=== PATIENT | female | born 1950 | race Two or more races ===

== ENCOUNTER → 2016-08-11 | Outpatient (CLI) | payer MEDICARE ==
[~2016-08-11] VITALS: Ht 165.1 cm; Wt 84.4 kg
[~2016-08-11] MED LIST: ASPIRIN EC81 MG ORAL; CITALOPRAM HBR20 M1 ORAL; FLUTICASONE PRO16 G1 NASAL; KLONOPIN0.5 MG ORAL; OYSCO-500500 M1 PO; SYNTHROID150 MCG ORAL; ZOLPIDEM TARTRA10 MG ORAL
[2016-08-11 10:19] VITALS: BP 148/68
--- NOTE | 2016-08-11 10:49 | GI Initial Consult Note ---
History of Present Illness General Date patient seen: Aug 11, 2016 Time patient seen: 10:45 Referring physician: JAYDEN Reason for Consultation: COLONOSCOPY Present Illness HPI 65 year old patient referred by Dr. Mcneil for routine colonoscopy screening. Pt presents today with no general complaints. Denies any unintentional weight loss. Home Meds Reported Medications Levothyroxine Sodium* (SYNTHROID*) 150 Mcg Tablet, 150 MCG ORAL DAILY, TAB Take in the morning on an empty stomach, at least 30 minutes before food. 08/11/16 Med list reviewed/reconciled: Yes Allergies: Coded Allergies: No Known Allergies (Unverified , 08/11/16) Patient History History Provided By: Patient PMH Narrative Hypothyroidism Past Surgical History: none Social History: Denies: alcohol use, drug use, other, smoking Review of Systems All Other Systems: negative except mentioned in HPI Physical Exam Vital Signs Date Time Temp Pulse Resp B/P Pulse Ox O2 Delivery O2 Flow Rate FiO2 08/11/16 10:19 97.4 60 16 148/68 96 WT 186 lbs HT 5'5 Sp02 EP Interpretation: reviewed General Appearance: normal inspection, well appearing, no apparent distress, alert Head: normocephalic EENT: PERRL/EOMI, normal ENT inspection Neck: normal inspection, full range of motion, supple Respiratory: normal breath sounds, no respiratory distress Cardiovascular: normal rate Gastrointestinal: normal inspection, non tender, soft Rectal: deferred Musculoskeletal: normal inspection, back normal Neurologic: normal inspection, alert, oriented x3, responsive Psychiatric: normal inspection, judgement/insight normal, memory normal Skin: normal inspection, normal color, no rash, warm/dry Lymphatic: normal inspection, no adenopathy GI: Plan Problems: (1) Colonoscopy planned (2) Hypothyroidism Plan colonoscopy scheduled for 08/14/16 - [facility] & [employer] prep instructions given and acknowledged. Seen with Dr. Norris. Thank you for referring this kind patient. Catarina Flood N.P. Aug 11, 2016 10:49
== END | disposition home or self-care (01) ==
LOC: PAN 09:54
DX: E03.9 Hypothyroidism, unspecified (principal)
CPT/HCPCS: 99201

== ENCOUNTER → 2016-08-14 | Day surgery (SDC) | payer MEDICARE ==
[~2016-08-14] VITALS: Ht 165.1 cm; Wt 81.6 kg
[2016-08-14] VITALS (8 sets, daily range): BP systolic 124–152; BP diastolic 70–78
[~2016-08-14] MED LIST changes: +LR 1000ml ONE; +Lidocaine 1% MPF 10mg/ml 5ml ONE; +Propofol 10mg/ml 20ml IV ONE
--- NOTE | 2016-08-14 08:28 | Pre-Procedure Note/Attestation ---
Pre-Procedure Note/Attestation Complete Prior to Procedure Planned Procedure: not applicable Procedure Narrative: colonoscopy Indications for Procedure Pre-Operative Diagnosis: screening Attestation I attest that I discussed the nature of the procedure; its benefits; risks and complications; and alternatives (and the risks and benefits of such alternatives ), prior to the procedure, with the patient (or the patient's legal credit resolution representative). I attest that, if there was a reasonable possibility of needing a blood transfusion, the patient (or the patient's legal credit resolution representative) was given the [facility] standardized written summary, pursuant to the [place] Blood Safety Act ([place] Health and Safety Code # 1645, as amended). I attest that I re-evaluated the patient just prior to the surgery and that there has been no change in the patient's H&P, except as documented below: JAIR SUNG Aug 14, 2016 08:28
--- NOTE | 2016-08-14 08:29 | Short Stay Surgery H&P ---
History of Present Illness History of Present Illness Chief Complaint see recent consult HPI Gayle Mack is a 65 year old female who was admitted on for Colon Screening Patient History Allergies: Coded Allergies: No Known Allergies (Unverified , 08/11/16) PAST MEDICAL HISTORY: Past Surgeries: Social History: Medication History Scheduled Aspirin Ec* (Aspirin Ec*), 81 MG ORAL DAILY, (Reported) Calcium Carbonate ([place]ysco-500), 500 MG PO DAILY, (Reported) Citalopram Hydrobromide* (Citalopram Hbr*), 20 MG ORAL DAILY, (Reported) Clonazepam* (Klonopin*), 0.5 MG ORAL Q6H, (Reported) Fluticasone Propionate* (Fluticasone Propionate*), 2 SPRAY NASAL DAILY, ( Reported) Levothyroxine Sodium* (Synthroid*), 150 MCG ORAL DAILY, (Reported) Scheduled PRN Zolpidem Tartrate* (Zolpidem Tartrate*), 10 MG ORAL BEDTIME PRN for Insomnia, ( Reported) Plan Attestation Are the patient's medical conditions optimized for surgery? JAIR SUNG Aug 14, 2016 08:29
--- NOTE | 2016-08-14 09:46 | Anethesia Preoperative Eval ---
Anesthesia Pre-op PMH/ROS General Date of Evaluation: Aug 14, 2016 Time of Evaluation: 09:43 Anesthesiologist: jacklyn ASA Score: ASA 2 Mallampati Score Class I : Soft palate, uvula, fauces, pillars visible Class II: Soft palate, uvula, fauces visible Class III: Soft palate, base of uvula visible Class IV: Only hard plate visible Mallampati Classification: Class II Surgeon: Myrna Diagnosis: Colon screening Surgical Procedure: colonoscopy Anesthesia History: none Family History: no anesthesia problems Allergies: Coded Allergies: No Known Allergies (Unverified , 08/11/16) Medications: see eMAR Past Medical History Cardiovascular: Denies: CAD, HTN, HI, arrhythmia, other, valve dz Pulmonary: Denies: COPD, LUCINDA, asthma, other Gastrointestinal/Genitourinary: Reports: GERD Neurologic/Psychiatric: Denies: CVA, TIA, dementia, depression/anxiety, other Endocrine: Reports: hypothyroidism HEENT: Denies: [place] (L), [place] (R), cataract (L), cataract (R), glaucoma, other Hematology/Immune: Denies: DVT, anemia, bleeding disorder, other Musculoskeletal/Integumentary: Denies: DDD, DJD, OA, RA, edema, other PMH Narrative: none Anesthesia Pre-op Phys. Exam Physician Exam Last Vital Signs Date Time Temp Pulse Resp B/P Pulse Ox O2 Delivery O2 Flow Rate FiO2 08/14/16 08:45 97.3 59 18 152/76 97 Room Air Constitutional: NAD Neurologic: CN 2-12 intact Cardiovascular: RRR Respiratory: CTA Gastrointestinal: S/NT/ND Airway Exam Mallampati Classification 3 Mallampati Score: Class II MO: full ROM: full Dentures: no lower, no upper Anesthesia Pre-op A/P Studies Pre-op Studies: EKG - sr Risk Assessment & Plan Plan: mac Status Change Before Surgery: No Pre-Antibiotics Drug: none ADALI ISRAEL CRNA Aug 14, 2016 09:46
--- NOTE | 2016-08-14 10:00 | Immediate Post-Op Evaluation ---
Immediate Post-Op Evalulation Immediate Post-Op Evalulation Procedure: colonoscopy Date of Evaluation: Aug 14, 2016 Time of Evaluation: 10:00 IV Fluids: 500 Blood Pressure Systolic: 126 Blood Pressure Diastolic: 70 Pulse Rate: 59 Respiratory Rate: 14 O2 Sat by Pulse Oximetry: 100 Temperature (Fahrenheit): 97.5 Nausea: No Vomiting: No Complications none Patient Status: awake, reacts, patent Hydration Status: adequate Drug: none JAYLENRIADALI CARR CRNA Aug 14, 2016 10:00
--- NOTE | 2016-08-14 10:08 | Endoscopy Procedure Note ---
Endoscopy Procedure Note Indication for Procedure: screening colon Procedures Performed: colonoscopy Operative Findings/Diagnosis: hemorrhoids Specimen: none Pt Tolerated Procedure Well: Yes Estimated Blood Loss: none Anesthesiologist: antoine Anesthesia: MAC Implant(s) used?: No 50 yrs or older w/o bx or poly: Yes 10yrs. F/U not recommended: Yes If not recommended, why?: Above average risk 10 yrs. F/U needed: Yes 18 years or older w/prev. colo: No JAIR SUNG Aug 14, 2016 10:08
--- NOTE | 2016-08-14 18:58 | Procedure Note ---
DATE OF PROCEDURE: 08/14/2016 SURGEON: Shayan Norris M.D. PROCEDURE: Colonoscopy. ANESTHESIA: Per ROTARY ENVELOPE MACHINE OPERATOR, Dunia Tarrillion. INSTRUMENT: Olympus adult flexible colonoscope. INDICATION: Screening colonoscopy evaluation. REASON FOR PROCEDURE: The procedure, risks, benefits, and possible consequences, including hemorrhage, aspiration, perforation and infection, and alternative treatments, were explained to the patient/legal guardian by Dr. Shayan Norris and the patient/legal guardian understood and accepted these risks. DESCRIPTION OF PROCEDURE: After informed consent was obtained and the patient was adequately sedated, first rectal exam was performed, which was normal. Then, the scope was advanced from the rectum into the cecum then subsequently into the terminal ileum. Quality of prep was very good. The patient had normal colonoscopy examination. No obvious pathology in terminal ileum, cecum, or in any other part of the colon. Retroflexion of rectum showed evidence of medium-sized internal hemorrhoids. SUMMARY OF FINDINGS: 1. Normal colonoscopy examination up to the terminal ileum. 2. Internal hemorrhoids. RECOMMENDATIONS: Repeat colonoscopy in five years. Shayan Norris M.D. DR: CHRIST JOB#: [id number] CC:
== END | disposition home or self-care (01) ==
LOC: GAS 08:01
DX: Z12.11 Encounter for screening for malignant neoplasm of colon (principal); K64.8 Other hemorrhoids; E03.9 Hypothyroidism, unspecified; F41.9 Anxiety disorder, unspecified; K21.9 Gastro-esophageal reflux disease without esophagitis; Z79.82 Long term (current) use of aspirin
CPT/HCPCS: 93005; G0121; J2704; J7120; 94003; 94150

== ENCOUNTER 2016-11-18 14:15 | Outpatient (CLI) | payer MEDICARE ==
[~2016-11-18 14:15] MED LIST changes: -LR 1000ml ONE; -Lidocaine 1% MPF 10mg/ml 5ml ONE; -Propofol 10mg/ml 20ml IV ONE
--- NOTE | 2016-11-18 14:54 | GI Progress Note ---
Assessment/Plan Problems: (1) Hypothyroidism ICD Codes: E03.9 - Hypothyroidism, unspecified SNOMED: [id number] Status: stable Status Narrative Seen with Dr. Norris. Assessment/Plan COLONOSCOPY SUMMARY OF FINDINGS: 1. Normal colonoscopy examination up to the terminal ileum. 2. Internal hemorrhoids. RECOMMENDATIONS: defer EGD at this time recommend this patient to have Synthroid brand name only due to her adverse rxn with generic. RTC prn repeat colonoscopy x 5 years Subjective Subjective throat irritation has been taking synthroid for 20 years, recently changed to levothyroxine and unable to tolerate states this has caused her to be admitted to the ED x 2 Objective T 97.2 BP 74 P 64 98 RA Weight (Pounds): 185 General Appearance: no apparent distress, alert, obese Cardiovascular: normal rate Respiratory/Chest: normal breath sounds, no respiratory distress Abdominal Exam: normal bowel sounds, non tender, soft Extremities: normal range of motion Catarina Flood N.P. Nov 18, 2016 14:54
== END 2016-11-18 14:50 | disposition home or self-care (01) ==
LOC: PAN 14:15
DX: E03.9 Hypothyroidism, unspecified (principal); K64.8 Other hemorrhoids
CPT/HCPCS: 99211